=== PATIENT | female | born 1955 | race African-American/Black ===

== ENCOUNTER 2021-09-28 06:44 | Day surgery (SDC) | payer MEDICARE, OTHER ==
[~2021-09-28] VITALS: Ht 170.2 cm; Wt 103.0 kg
[~2021-09-28 06:44] MED LIST: ALBU108A5 IN; ASPI-543 PO; GABA100C9 PO; METO-289 PO; PRAV20TA3 PO; TOFA1TAB PO; VERA180T14 PO
[2021-09-28] MEDS ORDERED: IODIXANOL 320MG/ML 100ML BTL IV ONE (07:17)
[2021-09-28] MEDS ORDERED: LIDOCAINE 2%HCL (LOCAL ANESTH.) INJ 10ml MDV ONE (07:18)
[2021-09-28] MEDS ORDERED: methylPREDNISolone SOD SUCC 125 MG/2 ML VL ONE (07:37)
[2021-09-28] MEDS ORDERED: diphenhdrAMINE HCL 50 MG/1 ML VL ONE (07:38)
[2021-09-28] MEDS ORDERED: SODIUM CHL 0.9% 0 ML ONE (07:38)
[2021-09-28] MEDS ORDERED: MIDAZOLAM HCL 2MG/2ML 2ml VIAL (1mg/ml) ONE (07:38)
[2021-09-28] MEDS ORDERED: ANGIOMAX 250 MG VIAL IV ONE (07:38)
[2021-09-28] MEDS ORDERED: HEPARIN SODIUM (PORCINE) 5000 UNITS/ML 1ML VIAL ONE (07:38)
[2021-09-28] MEDS ORDERED: fentaNYL CITRATE 100 MCG/2 ML VL ONE (07:38)
[2021-09-28] MEDS ORDERED: VERAPAMIL 2.5MG/ML INJ 2ML VIAL IV ONE (07:38)
[2021-09-28] MEDS ORDERED: FAMOTIDINE (10MG/ML) 2ML VL IV ONE (07:39)
== END 2021-09-28 10:59 | disposition home or self-care (01) ==
LOC: CATH 06:44
PROVIDERS: ATTEND Internal Medicine Cardiovascular Disease
DX: R94.39 Abnormal result of other cardiovascular function study (principal); I25.10 Atherosclerotic heart disease of native coronary artery without angina pectoris; E03.9 Hypothyroidism, unspecified; M06.9 Rheumatoid arthritis, unspecified; E66.9 Obesity, unspecified; I10 Essential (primary) hypertension; Z20.822 Contact with and (suspected) exposure to COVID-19; Z68.35 Body mass index [BMI] 35.0-35.9, adult
CPT/HCPCS: 93458; C1769; C1887; C1894; J1200; J1644; J2001; J2250; J2930; J3010; J3490; J7030; Q9967; U0003; 99152; 99153